=== PATIENT | female | born 1945 | race Caucasian/White ===

== ENCOUNTER 2020-04-16 14:18 | Inpatient (IN) | payer OTHER, MEDICARE ==
[~2020-04-16] VITALS: Ht 165.1 cm; Wt 86.7 kg
--- NOTE | ~2020-04-16 | EMS ---
[place] [address] EMS Patient Care Report Name: FRANKLYN LLAMAS Room #: REG CANDIDO Brady#: [id number] Admission: 04/16/20 Attend Phys: Discharge: Date of : 47 Report #: [id number] THIS REPORT FOR: //name// Report Transmitted: 04/16/2020 14:17 EMS Care Summary [place], [place]/[facility] Incident [id number] @ 04/16/2020 13:17 Incident Location [address] [place] [address] Patient FRANKLYN LLAMAS Female, 74 Years 1945 Patient Address [address] [place] [address] Patient History None Reported, Patient Allergies No known allergies, Patient Medications None Reported, Chief Complaint MILD HALLUCINATIONS Disposition Transported No Lights/[place] Dispatch Reason Unknown Problem/Person Down Transported To [facility] Narrative PT FOUND LYING ON FLOOR. [facility] P36 ON SCENE. PT STATES THAT SHE FELL EARLIER TODAY AND IS NOT HURT. PT NOTED TO HAVE URINATED ON HERSELF. PT NOTED TO HAVE OBVIOUS FX OF R ANKLE. PT STATES THAT THAT HAPPENED ABOUT 3 DAYS AGO. PT HAS DISTINCT ODOR OF UTI. PT IS A &O X3, BUT THEN ALSO [place] [address] EMS Patient Care Report Name: FRANKLYN LLAMAS Room #: REG [facility]#: [id number] Admission: 04/16/20 Attend Phys: Discharge: Date of : 47 Report #: [id number] HALLUCINATIONS AND SAYS THINGS THAT DON'T MAKE SENSE TO EMS OR PT DAUGHTER. PT AGREED TO GO TO ED RELUCTANTLY. PT TRASFERRED TO COT AND GIVEN MASK FOR TRASNPORT. TRASNPORTED WITHOUT INCIDENT. Initial Vitals @13:55P: 124,BP: 197/106,SpO2: 93, @13:54P: 122,R: 18,BP: 180/118,Pain: 4/10,GCS: 15,Glucose: 157,CO: 0,SpO2: 92,Revised Trauma: 12,IL Suspected: false Assessments @13:24MENTAL:SKIN:No Abnormalities,HEENT:Head/Face: No Abnormalities,Eyes: No Abnormalities,Neck/Airway: No Abnormalities,LUNG SOUNDS:ABDOMEN:PELVIS//GI:EXTREMITIES:PULSE:NEURO: Impression Hallucinogen related disorders Procedures @13:24ALS AssessmentSucceeded Timeline 13:16,Call Received 13:16,Dispatch Notified 13:17,Dispatched 13:17,En Route 13:22,On Scene 13:24,At Patient 13:24,ALS Assessment,Succeeded, 13:54,BP: 180/118 M,PULSE: 122,RR: 18 R,SPO2: 92 Ox,ETCO2: ,B,PAIN: 4,GCS: 15, 13:55,BP: 197/106 M,PULSE: 124,RR: R,SPO2: 93 Ox,ETCO2: ,BG: ,PAIN: ,GCS: , 14:01,Depart Scene 14:11,At Destination 14:35,Call Closed Disclaimer v1.1 Copyright 2020 [employer] This EMS Care Summary contains data elements from the applicable legal record (which may be displayed differently). It is designed to provide pertinent information for the following purposes: continuity of care, clinical quality, and state data reporting. The complete legal record is available to ED staff and administrators of the receiving hospital in [employer]'s Patient Tracker. All data is provided "as is."
--- NOTE | ~2020-04-16 | HC ---
[facility] [place] [address] CONSULTATION Name: FRANKLYN LLAMAS Room #: 445-P ADM IN M.R.#: [id number] Admission: 04/16/20 Attend Phys: Сергей Fernando MD Discharge: Date of : 47 Report #: [id number] THIS REPORT FOR: cc: ISAAK - Isabel family physician/PCP ISAAK - Isabel family physician/PCP Scott Velasquez MD ~ CC: Сергей MULLIGAN physician/PCP DATE OF SERVICE: 04/17/2020 REASON FOR CONSULTATION: Bilateral ankle fractures. HISTORY OF PRESENT ILLNESS: The patient is a 74-year-old female who fell at home about 3 days ago. She has had bruising on her legs, but was unable to bear weight. Her daughter evidently found her, brought her in last evening and was found to have a right ankle fracture dislocation and a nondisplaced left ankle fracture. She has had previous fracture of the right ankle with placement of hardware and subsequent hardware removal. PAST MEDICAL HISTORY, MEDICATIONS, SOCIAL HISTORY: Have all been reviewed and are on the chart. PHYSICAL EXAMINATION: GENERAL: This is a frail-appearing female in no acute distress. EXTREMITIES: Examination of bilateral lower extremities shows her to have short leg splints in place. She is able to wiggle her toes. She has brisk capillary refill and full sensation to light touch. IMAGING: X-ray examination, three views of the right ankle show a trimalleolar ankle fracture dislocation with partial reduction with a splint in place. Left ankle, three views shows a nondisplaced lateral malleolus fracture. ASSESSMENT: 1. Right trimalleolar ankle fracture dislocation. 2. Nondisplaced left lateral malleolus fracture. PLAN: Left ankle can be treated nonoperatively. She will need to be nonweightbearing for 6 weeks on this side. Right ankle does need open reduction and internal fixation, particularly since this is still subluxed on her post-reduction x-ray. I have discussed this with her. She is understanding and wished to proceed. We will plan for surgery this morning. [facility] [address] [place] [address] CONSULTATION Name: FRANKLYN LLAMAS Diana Room #: 445-P [facility] IN M.R.#: [id number] Admission: 04/16/20 Attend Phys: Сергей Fernando MD Discharge: Date of : 47 Report #: [id number] Thank you for allowing us to participate in the care of the patient. By: 1119 [id number] Scott Velasquez MD /nt
--- NOTE | ~2020-04-16 | O ---
[facility] [place] [address] OPERATIVE REPORT Name: FRANKLYN LLAMAS Room #: 445-P ADM IN M.R.#: [id number] Admission: 04/16/20 Attend Phys: Сергей Fernando MD Discharge: Date of : 47 Report #: [id number] THIS REPORT FOR: cc: ISAAK - Isabel family physician/PCP ISAAK - No family physician/PCP Scott Velasquez MD ~ CC: Сергей Fernando [facility] physician/PCP DATE OF SERVICE: 04/17/2020 PREOPERATIVE DIAGNOSIS: Right trimalleolar ankle fracture dislocation. POSTOPERATIVE DIAGNOSIS: Right trimalleolar ankle fracture dislocation. PROCEDURE: Open reduction internal fixation, right trimalleolar ankle fracture dislocation. SURGEON: Scott Velasquez MD. STITCHER HAND: Fern So PA-C. INDICATIONS FOR STITCHER HAND: Throughout the case, extensive retraction and manipulation of the ankle including holding of reduction of fracture fragments was required. This was afforded to me by my medical lab assistant. ANESTHESIA: General. IMPLANTS: Synthes 1/3 tubular plate 7-hole x 2 for medial and lateral fixation with a combination of cortical and cancellous screws as well as one 4.0 cannulated screw for posterior malleolar fixation. TOURNIQUET TIME: 121 minutes. ESTIMATED BLOOD LOSS: 25 mL. COMPLICATIONS: None. SPECIMENS: None. CONDITION UPON LEAVING THE OPERATING ROOM: Stable. INDICATIONS FOR PROCEDURE: The patient is a 74-year-old female who fell at home about 3 days ago and sustained bilateral ankle fractures, right was a trimalleolar fracture dislocation that was in need of operative intervention. She has a previous history of ORIF of this ankle with subsequent hardware [facility] [address] [place] [address] OPERATIVE REPORT Name: FRANKLYN LLAMAS Room #: 445-P ADM IN .R.#: [id number] Admission: 04/16/20 Attend Phys: Сергей Fernando MD Discharge: Date of : 47 Report #: [id number] removal. After discussion with her, she elected for ORIF of the right trimalleolar ankle fracture. DESCRIPTION OF PROCEDURE: Risks, benefits, alternatives, complications were discussed in detail with the patient including but not limited to risk of anesthesia, risk of damage to nerves, arteries, blood vessels, risk for infection, bleeding, risk for continued ankle pain, malunion, nonunion and need for reoperation. Informed consent was obtained from the patient. The right ankle was appropriately marked in the preoperative holding area. She was brought to the operating room and placed in supine position on operating room table. LMA anesthesia was induced without complication. Tourniquet was placed on the right thigh. Right lower extremity was prepped and draped in normal sterile fashion. Timeout was performed properly identifying the patient, the procedure as well as the instrumentation. All in the operating room were in agreement. Right lower extremity was exsanguinated and tourniquet was inflated. Tourniquet time was 121 minutes. The previous scars were used and the lateral scar was opened with a 10 blade through the skin. Dissection was taken down to the fibula. The fracture was identified and cleaned off and held with [id number] reduction forceps. A 7-hole one-third tubular plate was then contoured for the lateral malleolus and fixed with 3 distal cancellous screws and 3 proximal cortical screws. Attention was then turned to the medial side of the ankle. The medial incision was opened with a 10 blade and dissection was taken down to the medial malleolar fracture. There was significant comminution and osteopenic bone in this area and several attempts were made to treat this with 4-0 cannulated screws that ultimately resulted in failure secondary to compromised bone stock. It was felt then that maybe we should attempt to fix the posterior malleolus in order to gain stability of the ankle mortise. This ultimately was fixed with one 4.0 cannulated screw from anterior to posterior, that held the posterior malleolar fracture fragment in place. After this, it was decided that we would be unable to get excellent fixation of the medial malleolar fracture fragments and so we would use a spiked buttress plate on the side. This was fashioned with a 7-hole one-third tubular plate and fixed with 3 cortical screws proximally with no screws distally given the inadequate bone stock. Fluoroscopic images were taken to verify adequate fracture fixation and stability of the ankle mortise as was the case. Tourniquet was deflated. Hemostasis was obtained with Bovie cautery. The skin was closed with 3-0 nylon. Soft dressing of Xeroform, 4 x 4's, Webril, and a short leg splint were applied. The patient tolerated this procedure well and went to recovery room under care of anesthesia postoperatively. By: 1125 [id number] Scott Velasquez MD /yari
[2020-04-16 14:20] VITALS: BP 181/114
[2020-04-16] MEDS ORDERED: NOHOMEMEDICATIONS (14:43)
[2020-04-16 15:15] LABS: ABSOLUTE NEUTROPHILS 10.1 thou/uL (1.4-8.2); BASOPHILS 0.4 % (0.0-2.0); EOSINOPHILS 0.3 % (0.0-3.0); HEMOGLOBIN 13.8 gm/dL (12.0-15.0); LYMPHOCYTES 9.9 % (24.0-44.0); MCH 32.3 pg (26.0-34.0); MCHC 33.7 g/dL (28.0-37.0); MCV 95.8 fL (80.0-100.0); MONOCYTES 8.9 % (1.0-8.0); PLATELET COUNT 269 thou/uL (150-400); POLYS 80.5 % (36.0-66.0); RBC 4.28 mil/uL (4.20-5.00); RDW 13.5 % (10.5-14.5); WBC 12.5 thou/uL (4.0-11.0)
[2020-04-16 15:25] LABS: ANION GAP 17 mmol/L (7-16); BUN 67 mg/dL (7-18); CALCIUM 9.6 mg/dL (8.5-10.1); CHLORIDE 101 mmol/L (98-107); CO2 23 mmol/L (21-32); CREATININE 1.6 mg/dL (0.6-1.0); GLUCOSE 121 mg/dL (74-106); POTASSIUM 3.5 mmol/L (3.5-5.1); SODIUM 141 mmol/L (136-145)
[2020-04-16 15:40] LABS: ALBUMIN 3.8 g/dL (3.4-5.0); SGOT 106 U/L (15-37); SGPT 66 U/L (30-65); TOTAL BILIRUBIN 1.3 mg/dL (0.2-1.0); TOTAL PROTEIN 8.2 g/dL (6.4-8.2); TROPONIN-I <0.06 ng/mL (<0.06)
[2020-04-16 16:40] VITALS: BP 180/120
[2020-04-16 16:54] LABS: URINE BLOOD TRACE (Negative); URINE CLARITY CLEAR; URINE COLOR YELLOW; URINE GLUCOSE-RANDOM* NEGATIVE (Negative); URINE KETONES TRACE (Negative); URINE LEUKOCYTES-REFLEX NEGATIVE (Negative); URINE NITRITE-REFLEX NEGATIVE (Negative); URINE PROTEIN (DIPSTICK) NEGATIVE (Negative); URINE UROBILINOGEN 0.2 E.U./dl (0.2-1.0)
[2020-04-16 16:56] LABS: ICTOTEST (BILI CONFIRMATORY) Negative (Negative); URINE BILIRUBIN NEGATIVE (Negative)
--- NOTE | 2020-04-16 17:39 | NUR ---
RADHA JEFFERSON (DAUGHTER) [phone]
[2020-04-16 20:52] VITALS: BP 160/86
[2020-04-16 21:19] VITALS: BP 119/63
--- NOTE | 2020-04-16 22:59 | NUR ---
PT ARRIVED TO THE UNIT FROM ER AT AROUND 2100 HRS. SHE IS ALERT AND ORIENTED. SHE DENIES PAIN TO LEGS. SHE S/P ANKLE REDUCTION WITH CHANTE SPLINTS IN PLACE. LEGS ELEVATED.GOOD CAP REFILL TO TOES.IV ABT STARTED. MORALES WITH DARK YELLOW URINE, GOOD U/O. PT DENIES COUGH OR SOA. SKIN CHECKED, SHE HAS BRUISING TO CHANTE KNEES, REST OF BODY IS INTACT.PT IS TO BE NPO AFTER MIDNOC, SHE ASKED FOR A SANDWICH BOX FOR NOW. WATER PROVIDED. NO TROUBLE SWALLOWING.WILL CONTINUE WITH POC TILL EOS.
[2020-04-17] VITALS (16 sets, daily range): BP systolic 118–177; BP diastolic 72–102
--- NOTE | 2020-04-17 04:00 | NUR ---
PT RESTING COMFORTABLY. PT IS CALM WITH ZERO SIGNS OF ANXIETY OR RESTLESSNESS.DENIES ANY NAUSEA OR VOMITING. NO SIGNS OF TREMORS .SHE IS VERY SWEET AND COOPERATIVE.
[2020-04-17 06:05] LABS: HEMATOCRIT 33.1 % (37.0-47.0); MCH 33.3 pg (26.0-34.0); MCHC 34.2 g/dL (28.0-37.0); MCV 97.3 fL (80.0-100.0); RBC 3.4 mil/uL (4.20-5.00); RDW 13.3 % (10.5-14.5)
[2020-04-17 06:06] LABS: HEMOGLOBIN 11.3 gm/dL (12.0-15.0)
[2020-04-17 06:30] LABS: CALCIUM 8.2 mg/dL (8.5-10.1); POTASSIUM 3.1 mmol/L (3.5-5.1)
--- NOTE | 2020-04-17 12:30 | NUR ---
ORDERS RECEIVED FOR PT EVAL AND TREAT. Pt WITH R ANKLE TRIMALLEOLAR FX/DISLOCATION WITH PLANNED ORIF THIS MORNING. ALSO HAS L ANKLE LATERAL MALLEOLAR NONDISPLACED FRACTURE WITH PLAN FOR NONOPERATIVE TREATMENT WITH NWB [address] SHEN. Pt OUT OF ROOM THIS AM FOR SURGERY WITH DR. SHEN. WILL NEED NEW PT CONSULT FROM [facility] S/P SURGICAL INTERVENTION WITH UPDATED RESTRICTIONS/WB STATUS PRIOR TO INITIATING PT EVALUATION.
--- NOTE | 2020-04-17 16:29 | NUR ---
Assumed care of pt at 0700. Pt a&ox4. Underwent surgery this am. Communicated with familiy and updated on pt's status. Dressings c/d/i. Fontanez catheter in place. Pt on bedrest. Physical therapy evaluated. CIWA protocol started. Blood pressure elevated. Provider aware. Call light within reach. Fall precautions in place. Will continue to monitor.
[2020-04-18 03:20] VITALS: BP 139/93
--- NOTE | 2020-04-18 06:22 | NUR ---
PT LYING IN BED. PERCOCET PROVIDNG PAIN RELIEF. RESTING COMFORTABLY. NO NEEDS VOICED. CALL LIGHT WITHIN REACH. FREQUENT OBSERVATION.
[2020-04-18 08:05] LABS: HEMATOCRIT 30.6 % (37.0-47.0); HEMOGLOBIN 10.6 gm/dL (12.0-15.0)
[2020-04-18 08:41] VITALS: BP 142/81
[2020-04-18 16:12] VITALS: BP 145/77
--- NOTE | 2020-04-18 17:42 | NUR ---
PT IS A&OX4, VSS, BILATERAL ANKLE FRACTURES NON WT BARRING, SURGERY DONE 04/17, RT ORIF, LEFT IV AC SALINE LOCK, REGULAR DIET, FALL PRECAUTIONS IN PLACE, WILL CONTINUE TO MONITOR.
[2020-04-18 20:49] VITALS: BP 152/81
--- NOTE | 2020-04-19 04:05 | NUR ---
PT IS ALERT AND ORIENTED. VERY PLEASANT AND COOPERATIVE. NO SIGNS OF ETOH WITHDRAWAL. SPLINTS TO CHANTE LEGS. LEGS ELEVATED. PT GIVEN PO PAIN MEDS FOR A 3-4 PAIN. PAIN SEEMS CONTROLLED. VSS. SHE IS IN A GOOD MOOD. DENIES ANY GI OR DISCOMFORT. CALLS WITH NEEDS. WILL CONTINUE WITH POC.
--- NOTE | 2020-04-19 08:04 | EKG ---
[facility] [place] [address] ELECTROCARDIOGRAM REPORT Name: FRANKLYN LLAMAS Room #: 445-P ADM IN M.R.#: [id number] Admission: 04/16/20 Attend Phys: Сергей Fernando MD Discharge: Date of : 47 Report #: [id number] THIS REPORT FOR: cc: ISAAK - Isabel family physician/PCP ISAAK - Isabel family physician/PCP Mandeep Smyth MD [facility] ~ THIS REPORT FOR: //name// [facility] ED Test Date: 2020-04-16 Test Time: 15:00:55 Pat Name: FRANKLYN LLAMAS Department: Room: [facility] Gender: F Sr. Manager: SONDRA FREED : 1945 Requested By: Oscar Muse Order Number: [id number] MD: Mandeep Smyth Measurements Intervals [place] Rate: 109 P: 46 OR: 169 QRS: 23 QRSD: 88 T: -36 QT: 325 QTc: 438 Interpretive Statements Sinus tachycardia Atrial premature complex Abnormal R-wave progression, early transition Nonspecific ST segment abnormality No previous ECG available for comparison Electronically Signed On 04-19-2020 8:03:42 CDT by Mandeep Smyth [email or web address] <ELECTRONICALLY SIGNED> By: Mandeep Smyth MD, [facility] 04/19/20 0803 [id number] Mandeep Smyth MD, [facility] /EPI
--- NOTE | 2020-04-19 09:41 | NUR ---
assessment: CM REVIEWED CHART AND SPOKE WITH PATIENT AT THE BEDSIDE. PT IS ALERT AND ORIENTED X4. PT WAS ADMITTED DUE TO BILATERAL ANKLE FX. PT REPORS SHE LIVES IN A HOUSE ALONE. PT REPORTS ABOUT 3 STEPS WITH NO HANDRAILS TO ENTER. PT REPORTS ONCE INSIDE SHE HAS NO STEPS. PT STATES SHE NORMALLY AMBULATES INDEPENDENTLY. PT DENIES HAVING ANY DME OTHER THEN A GRAB BAR IN THE SHOWER. CM DISCUSSED ROLE. PT REPORTS NO HX OF HH OR BEING TO A SNF IN THE PAST. CM DISCUSSED PT IS CURRENTLY NON-WEIGHT BEARING ON BLE AND WILL LIKELY NEED POST ACUTE CARE. CM STATES SHE IS AGREEABLE FOR SNF AND WILL REVIEW THE OPTIONS. CM PROVIDED PATIENT WITH SNF LIST FOR HER TO REVIEW. CM WILL CONTINUE TO FOLLOW TO ASSIST NEEDED.
[2020-04-19 10:32] VITALS: BP 182/85
--- NOTE | 2020-04-19 14:40 | NUR ---
PT IS A&OX4, VSS, MORALES/BEDPAN, SMALL BM TODAY. PT WORKED WITH PT. UP WITH PT ONLY, BEDBATH WITH MARKETING EXECUTIVE. PT ON REG DIET, FALL PRECAUTIONS IN PLACE, WILL CONTINUE TO MONITOR.
[2020-04-19 18:23] VITALS: BP 166/88
[2020-04-19 20:39] VITALS: BP 168/93
--- NOTE | 2020-04-20 04:00 | NUR ---
PT IS ALERT AND ORIENTED. VERY PLEASANT. SHE HAS A MORALES WITH ADEQUATE OUTPUT. SPLINTS TO CHANTE LEGS, LEGS ELEVATED.SHE GOT A PAIN PILL ONE TIME AT AROUND BED TIME AND THAT HELPED WITH PAIN. PT IS IN CONVERSATION WITH DAUGHTER AND UPDATES HER ON CONDITION. NO SIGNS ETOH WITHDRAWAL.PT WAS PLACED ON BEDPAN,BUT ONLY PASSED FLATUS. SHE CALLS APPROPRIATELY.NO FURTHER CONCERNS.
[2020-04-20 05:00] VITALS: BP 152/83
[2020-04-20 07:35] VITALS: BP 186/77
[2020-04-20 08:01] LABS: HEMATOCRIT 34.8 % (37.0-47.0); HEMOGLOBIN 12.1 gm/dL (12.0-15.0); MCH 33.1 pg (26.0-34.0); MCHC 34.7 g/dL (28.0-37.0); MCV 95.2 fL (80.0-100.0); RBC 3.66 mil/uL (4.20-5.00); RDW 12.9 % (10.5-14.5); WBC 7.3 thou/uL (4.0-11.0)
[2020-04-20 08:19] LABS: ALBUMIN 2.7 g/dL (3.4-5.0); CALCIUM 9.1 mg/dL (8.5-10.1); CREATININE 0.7 mg/dL (0.6-1.0); POTASSIUM 3.2 mmol/L (3.5-5.1); TOTAL BILIRUBIN 0.7 mg/dL (0.2-1.0); TOTAL PROTEIN 6.4 g/dL (6.4-8.2)
[2020-04-20] MEDS ORDERED: PERCOCET PO (12:52)
[2020-04-20] MEDS ORDERED: ASPIR 8181 MG PO (12:52)
[2020-04-20] MEDS ORDERED: HYDROCHLOROTHIA25 M2 PO (12:52)
[2020-04-20] MEDS ORDERED: B-12500 MCG PO (12:52)
[2020-04-20] MEDS ORDERED: K-DUR 20 MEQ T20 MEQ PO (12:52)
[2020-04-20] MEDS ORDERED: MIRALAX17 GM PO (12:52)
[2020-04-20] MEDS ORDERED: SENNA8.6 MG PO (12:52)
--- NOTE | 2020-04-20 14:05 | NUR ---
on-going assessment: cm reviewed chart and spoke WITH ATTENDING. PT IS STABLE TO DISCHARGE TODAY TO SNF. CM SPOKE WITH PT AND NOTIFIED HER THAT [facility] CAN ACCEPT HER. PT REPORTS SHE PREFERS TO GO TO [facility]. CHART COPY WAS ORDERED AND CM NOTIFIED SAND HAULER. CM NOTIFIED YASMEEN AT THE [facility] AND FAXED DISCHARGE ORDERS AND CONFIRMED THEY RECEIVED IT. TRANSPORTATION HAS BEEN ARRANGED FOR 4PM. CM NOTIFIED BEDSIDE RN WHO HAS THE NUMBER FOR REPORT. CM NOTIFIED PATIENT WHO REPORTS SHE WILL NOTIFY HER DAUGHTER. PT REPORTS NO FURTHER NEEDS FROM [facility] AT THIS TIME. CASE CLOSED.
--- NOTE | 2020-04-20 14:59 | NUR ---
Assumed care of pt at 0700. Pt a&ox4. Pain controlled with prn pain meds. Blood pressure high and potassium low in the am. Provider notified. New orders noted. Dressings c/d/i. Small BM in bedpan. Call light within reach. NWB. Report given to facility.
[2020-04-20 16:56] VITALS: BP 181/93
== END 2020-04-20 17:15 | DRG 492 ==
LOC: ER 14:18 → 4S 16:38 → EROBS 16:38 → 4S 20:54
PROVIDERS: Nurse Practitioner Family; Orthopaedic Surgery; Physician Assistant; ADMIT Hospitalist; ATTEND Hospitalist
PROC: 2W3QX1Z Immobilization of Right Lower Leg using Splint (ICD-10-PCS; principal; 2020-04-16)
PROC: 2W3RX1Z Immobilization of Left Lower Leg using Splint (ICD-10-PCS; principal; 2020-04-16)
PROC: 0QSJXZZ Reposition Right Fibula, External Approach (ICD-10-PCS; principal; 2020-04-16)
PROC: 0QSGXZZ Reposition Right Tibia, External Approach (ICD-10-PCS; principal; 2020-04-16)
PROC: 0QSG04Z Reposition Right Tibia with Internal Fixation Device, Open Approach (ICD-10-PCS; 2020-04-17)
PROC: 0QSJ04Z Reposition Right Fibula with Internal Fixation Device, Open Approach (ICD-10-PCS; 2020-04-17)
DX: S82.851A Displaced trimalleolar fracture of right lower leg, initial encounter for closed fracture (principal); N17.0 Acute kidney failure with tubular necrosis; M62.82 Rhabdomyolysis; S82.65XA Nondisplaced fracture of lateral malleolus of left fibula, initial encounter for closed fracture; G47.00 Insomnia, unspecified; E87.6 Hypokalemia; D64.9 Anemia, unspecified; E53.8 Deficiency of other specified B group vitamins; Z20.828 Contact with and (suspected) exposure to other viral communicable diseases; E66.01 Morbid (severe) obesity due to excess calories; F10.10 Alcohol abuse, uncomplicated; Z79.899 Other long term (current) drug therapy; Z88.0 Allergy status to penicillin; Z47.89 Encounter for other orthopedic aftercare; Z68.31 Body mass index [BMI] 31.0-31.9, adult; Z79.82 Long term (current) use of aspirin; W01.0XXA Fall on same level from slipping, tripping and stumbling without subsequent striking against object, initial encounter; Y93.89 Activity, other specified; Y92.89 Other specified places as the place of occurrence of the external cause; Y99.8 Other external cause status
CPT/HCPCS: 10102; 50101; 50343; 50386; 51122; 51131; 51132; 56527; 56528; 56667; 57091; 57180; 62110; 62900; 70005